=== PATIENT | female | born 1940 | race Caucasian/White ===

== ENCOUNTER → 2017-02-24 | Outpatient (CLI) | payer MEDICARE, BC ==
[2017-02-24 12:20] LABS: BUN/CREATININE RATIO 28.9 (6.0-26.0); CALCIUM 9.6 mg/dL (8.4-10.2); POTASSIUM 4.3 mmol/L (3.6-5.0)
[2017-02-24 12:31] LABS: PH-URINE 6.5 (5.0 - 8.0); URINE APPEARANCE CLOUDY; URINE BILIRUBIN NEGATIVE (NEGATIVE); URINE BLOOD NEGATIVE (NEGATIVE); URINE COLOR YELLOW; URINE GLUCOSE NEGATIVE (NEGATIVE); URINE KETONE NEGATIVE (NEGATIVE); URINE LEUKOCYTE ESTERASE TRACE (NEGATIVE); URINE NITRATE NEGATIVE (NEGATIVE); URINE PROTEIN(semi-quant) NEGATIVE (NEGATIVE); URINE UROBILINOGEN NORMAL (NORMAL); URINE WBC 16-30 /hpf (0-3)
[2017-02-24 12:32] LABS: URINE MUCUS PRESENT (NOT PRESENT)
== END ==
LOC: LAB 11:42
PROVIDERS: Nurse Practitioner Family
DX: Z87.448 Personal history of other diseases of urinary system (principal); N28.1 Cyst of kidney, acquired

== ENCOUNTER → 2017-02-27 | Outpatient (CLI) | payer MEDICARE, BC | LOC: RAD 08:41 | DX: N28.1 Cyst of kidney, acquired (principal); R31.9 Hematuria, unspecified ==

== ENCOUNTER → 2017-04-15 | Outpatient (CLI) | payer MEDICARE, BC | LOC: LAB 14:37 | DX: N39.0 Urinary tract infection, site not specified (principal); Z88.0 Allergy status to penicillin ==

== ENCOUNTER → 2017-04-28 | Outpatient (CLI) | payer MEDICARE, BC ==
[2017-04-28 16:23] LABS: PH-URINE 5.5 (5.0 - 8.0); URINE APPEARANCE CLEAR; URINE COLOR YELLOW
[2017-04-28 16:24] LABS: URINE BILIRUBIN NEGATIVE (NEGATIVE); URINE BLOOD TRACE (NEGATIVE); URINE GLUCOSE NEGATIVE (NEGATIVE); URINE KETONE NEGATIVE (NEGATIVE); URINE LEUKOCYTE ESTERASE TRACE (NEGATIVE); URINE NITRATE NEGATIVE (NEGATIVE); URINE PROTEIN(semi-quant) NEGATIVE (NEGATIVE); URINE UROBILINOGEN NORMAL (NORMAL)
== END ==
LOC: LAB 15:10
PROVIDERS: Physician Assistant
DX: N39.0 Urinary tract infection, site not specified (principal)

== ENCOUNTER → 2017-07-28 | Outpatient (CLI) | payer MEDICARE, BC ==
[2017-07-28 10:01] LABS: PH-URINE 5.5 (5.0 - 8.0); URINE APPEARANCE CLOUDY; URINE BILIRUBIN NEGATIVE (NEGATIVE); URINE BLOOD 50 ery/uL (NEGATIVE); URINE COLOR YELLOW; URINE GLUCOSE NEGATIVE (NEGATIVE); URINE KETONE NEGATIVE (NEGATIVE); URINE LEUKOCYTE ESTERASE 2+ (NEGATIVE); URINE MUCUS PRESENT (NOT PRESENT); URINE NITRATE NEGATIVE (NEGATIVE); URINE PROTEIN(semi-quant) 1+ mg/dL (NEGATIVE); URINE UROBILINOGEN NORMAL (NORMAL); URINE WBC >50 /hpf (0-3)
== END ==
LOC: LAB 09:30
PROVIDERS: Nurse Practitioner Family
DX: N30.00 Acute cystitis without hematuria (principal); Z88.0 Allergy status to penicillin

== ENCOUNTER → 2017-08-06 | Outpatient (CLI) | payer MEDICARE, BC ==
[2017-08-06 10:28] LABS: EOS % 0.6 % (1.0-5.0); HEMATOCRIT 41.7 % (37.0-47.0); HEMOGLOBIN 13.3 g/dL (12.5-16.0); LYMPH# 1.5 (1.50-4.00); MEAN CELL VOLUME 91 fl (78-100); MEAN CORPUSCULAR HEMOGLOBIN 29 pg (27-31); MEAN CORPUSCULAR HGB CONC 32 g/dL (33-37); MEAN PLATELET VOLUME 10.1 fl (7.4-10.4); MONO # 0.6 (0.20-0.80); NEU # 4.7 (1.40-6.50); PLATELET COUNT 227 K/mm3 (130-400); RED BLOOD COUNT 4.58 M/mm3 (4.10-5.30); RED CELL DISTRIBUTION WIDTH 13.9 % (11.5-14.5); WHITE BLOOD COUNT 6.8 K/mm3 (4.8-10.8)
[2017-08-06 10:37] LABS: BUN/CREATININE RATIO 28.4 (6.0-26.0); CALCIUM 9.2 mg/dL (8.4-10.2); POTASSIUM 4.1 mmol/L (3.6-5.0); TOTAL BILIRUBIN 0.6 mg/dL (0.2-1.3); TOTAL PROTEIN 7.2 g/dL (6.3-8.2)
== END ==
LOC: LAB 09:45
PROVIDERS: Nurse Practitioner Family
DX: E78.2 Mixed hyperlipidemia (principal); R03.0 Elevated blood-pressure reading, without diagnosis of hypertension; N39.0 Urinary tract infection, site not specified; N64.4 Mastodynia; Z12.31 Encounter for screening mammogram for malignant neoplasm of breast; Z88.0 Allergy status to penicillin

== ENCOUNTER → 2017-08-19 | Outpatient (CLI) | payer MEDICARE, BC | LOC: MAMMO 13:41 | DX: Z12.31 Encounter for screening mammogram for malignant neoplasm of breast (principal); N64.4 Mastodynia; Z88.5 Allergy status to narcotic agent; Z98.890 Other specified postprocedural states ==

== ENCOUNTER → 2018-05-10 | Outpatient (CLI) | payer MEDICARE, BC | LOC: LAB 14:11 | DX: R30.0 Dysuria (principal) ==

== ENCOUNTER → 2018-06-29 | Outpatient (CLI) | payer MEDICARE, BC ==
[2018-06-29 14:38] LABS: URINE APPEARANCE HAZY; URINE BILIRUBIN NEGATIVE (NEGATIVE); URINE COLOR YELLOW; URINE GLUCOSE NEGATIVE (NEGATIVE); URINE KETONE NEGATIVE (NEGATIVE); URINE PROTEIN(semi-quant) TRACE mg/dL (NEGATIVE); URINE UROBILINOGEN NORMAL (NORMAL)
[2018-06-29 14:39] LABS: URINE BLOOD TRACE (NEGATIVE); URINE LEUKOCYTE ESTERASE NEGATIVE (NEGATIVE); URINE MUCUS PRESENT (NOT PRESENT); URINE NITRATE NEGATIVE (NEGATIVE)
== END ==
LOC: LAB 13:35
PROVIDERS: Nurse Practitioner
DX: Z09 Encounter for follow-up examination after completed treatment for conditions other than malignant neoplasm (principal)

== ENCOUNTER → 2018-07-20 | Outpatient (CLI) | payer MEDICARE, BC | LOC: LAB 14:43 | DX: R30.0 Dysuria (principal) ==

== ENCOUNTER → 2018-09-02 | Outpatient (CLI) | payer MEDICARE, BC | LOC: LAB 14:38 | DX: N30.91 Cystitis, unspecified with hematuria (principal); R30.0 Dysuria ==

== ENCOUNTER → 2020-07-18 | Outpatient (CLI) | payer MEDICARE, BC ==
[2020-07-18 11:36] LABS: EOS # 0.1 (0.04-0.40); EOS % 0.8 % (1.0-5.0); HEMATOCRIT 42.3 % (37.0-47.0); HEMOGLOBIN 13.3 g/dL (12.5-16.0); LYMPH# 1.4 (1.50-4.00); MEAN CELL VOLUME 92 fl (78-100); MEAN CORPUSCULAR HEMOGLOBIN 29 pg (27-31); MEAN CORPUSCULAR HGB CONC 31 g/dL (33-37); MEAN PLATELET VOLUME 9.4 fl (7.4-10.4); MONO # 0.6 (0.20-0.80); NEU # 4.5 (1.40-6.50); PLATELET COUNT 230 K/mm3 (130-400); RED BLOOD COUNT 4.62 M/mm3 (4.10-5.30); RED CELL DISTRIBUTION WIDTH 13.8 % (11.5-14.5); WHITE BLOOD COUNT 6.7 K/mm3 (4.8-10.8)
[2020-07-18 12:03] LABS: ALBUMIN 4.2 g/dL (3.4-4.8); POTASSIUM 3.9 mmol/L (3.5-5.1)
[2020-07-18 12:04] LABS: CALCIUM 9.1 mg/dL (8.3-10.5)
[2020-07-18 12:05] LABS: TOTAL PROTEIN 6.8 g/dL (6.2-8.1)
[2020-07-18 12:07] LABS: TOTAL BILIRUBIN 0.5 mg/dL (0.2-1.2)
== END ==
LOC: LAB 11:21
PROVIDERS: Physician Assistant
DX: Z00.00 Encounter for general adult medical examination without abnormal findings (principal); E78.5 Hyperlipidemia, unspecified

== ENCOUNTER → 2021-07-19 | Outpatient (CLI) | payer MEDICARE, BC ==
[2021-07-19 11:37] LABS: BASO # 0.01 K/mm3 (0.02-0.10); EOS # 0.07 K/mm3 (0.04-0.40); EOS % 0.9 % (1.0-5.0); HEMOGLOBIN 13.2 g/dL (12.5-16.0); LYMPH# 1.37 K/mm3 (1.50-4.00); MEAN CELL VOLUME 93 fl (78-100); MEAN CORPUSCULAR HEMOGLOBIN 29 pg (27-31); MEAN CORPUSCULAR HGB CONC 31 g/dL (33-37); MEAN PLATELET VOLUME 9.4 fl (7.4-10.4); MONO # 0.58 K/mm3 (0.20-0.80); NEU # 5.44 K/mm3 (1.40-6.50); PLATELET COUNT 230 K/mm3 (130-400); RED BLOOD COUNT 4.51 M/mm3 (4.10-5.30); RED CELL DISTRIBUTION WIDTH 12.9 % (11.5-14.5); WHITE BLOOD COUNT 7.5 K/mm3 (4.8-10.8)
[2021-07-19 12:10] LABS: ALBUMIN 4.3 g/dL (3.4-4.8); POTASSIUM 4.6 mmol/L (3.5-5.1)
[2021-07-19 12:11] LABS: CALCIUM 9.6 mg/dL (8.3-10.5)
[2021-07-19 12:13] LABS: TOTAL PROTEIN 6.9 g/dL (6.2-8.1)
[2021-07-19 12:15] LABS: TOTAL BILIRUBIN 0.7 mg/dL (0.2-1.2)
== END ==
LOC: LAB 11:12
PROVIDERS: Family Medicine
DX: Z00.00 Encounter for general adult medical examination without abnormal findings (principal); E78.5 Hyperlipidemia, unspecified; N28.1 Cyst of kidney, acquired; N39.0 Urinary tract infection, site not specified; E55.9 Vitamin D deficiency, unspecified; K64.4 Residual hemorrhoidal skin tags; M19.90 Unspecified osteoarthritis, unspecified site

== ENCOUNTER → 2021-11-05 | Outpatient (CLI) | payer MEDICARE, BC | LOC: LAB 10:22 | DX: E78.2 Mixed hyperlipidemia (principal) ==